=== PATIENT | female | born 1990 | race Caucasian/White ===

== ENCOUNTER 2018-10-24 11:27 | Inpatient (IN) | payer OTHER ==
[~2018-10-24] VITALS: Ht 162.6 cm; Wt 114.6 kg
--- NOTE | ~2018-10-24 | OP ---
PATIENT NAME: TONYA VICTOR MEDICAL RECORD: [id number] :88 LOCATION:D.M2 D.2137 ADMISSION DATE:10/24/18 SURGEON: CHRISTO JUAREZ MD DATE OF OPERATION: 10/28/2018 PREOPERATIVE DIAGNOSES: 1. Acute cholecystitis. 2. Gallstones. 3. Acute hepatitis. 4. Frequent headaches. POSTOPERATIVE DIAGNOSES: 1. Acute cholecystitis. 2. Gallstones. 3. Acute hepatitis. 4. Frequent headaches. PROCEDURE: 1. Laparoscopic cholecystectomy with intraoperative cholangiogram. 2. Fluoroscopic interpretation. 3. Carlos-Cut liver biopsy. SURGEON: Christo Juarez MD REPORT OF PROCEDURE: The patient's abdomen was prepped and draped in sterile fashion. A cutdown was made on the superior aspect of the umbilicus, 0 Vicryls were placed in the fascia bilaterally and the fascia was incised with 15-blade. I then bluntly entered the peritoneal cavity and placed a 12-mm Tracy port. Under direct visualization, a 5 mm trocar was placed in the epigastrium and 2 more 5-mm trocars were placed in the right subcostal region. The gallbladder was grasped and elevated. There were some chronic adhesions of the fatty tissue to the gallbladder and the liver. These were taken down using electrocautery. We then dissected free the cystic artery and cystic duct. The cystic artery was clipped proximally and distally and ligated in standard fashion. The cystic duct was clipped twice proximally and an opening was made. At this point, a Cook cholangiocath was brought through the abdominal wall and pushed into the cystic duct. An intraoperative cholangiogram was performed, which showed a nondilated biliary system with good flow into the hepatic vessels and out through the ampulla into the duodenum. There were no filling defects or signs of common bile duct stones. At this point, the cholangiocath was removed and the cystic duct was clipped twice distally and ligated. The gallbladder was then taken off the liver bed using electrocautery and placed in the right upper quadrant. Any bleeding from the liver bed was then treated with electrocautery. A Carlos-Cut biopsy tool was brought through the abdominal wall and 4 separate pieces of tissue were removed from the body of the right side of the liver. Any bleeding from these spots were treated with electrocautery. At the conclusion of the case, there was no sign of any active bleeding. The ports and insufflation were then removed and the gallbladder was taken out through the umbilicus. The umbilical fascia was closed with interrupted 0 Vicryls times 3. The wounds were then irrigated out with normal saline, infused with 10 mL of 0.25% Marcaine with epinephrine. The skin incisions were all closed with subcutaneous 5-0 Monocryl and dressed appropriately. COMPLICATIONS: None. OPERATIVE REPORT [id number] STONE,TONYA CONDITION: Stable. ANESTHESIA: General endotracheal and local. BLOOD LOSS: Minimal. TRANSINT:[id number] Voice Confirmation ID: [id number] DOCUMENT ID: [id number] CHRISTO JUAREZ MD CC: [id number] DICTATION DATE: 10/28/18 1001 CLAM BED LABORER: 10/28/18 1029 ADM IN [facility] [address] [id number]
[2018-10-24] MEDS ORDERED: WELLBUTRIN XL150 M1 PO (11:41)
--- NOTE | 2018-10-24 12:00 | NUR ---
ASSUMED CARE OF PT. RESTING IN BED. A/OX3. SIN W/D AND SLIGHTLY JAUNDICED. RESP EVEN/UNLABORED. DENIES ANY PAIN. CONT TO C/O NAUSEA.
[2018-10-24 12:27] LABS: BASOPHILS 0.3 % (0-2); EOSINOPHILS 0.3 % (0-7); HEMATOCRIT 42.3 % (36.0-48.0); HEMOGLOBIN 14.6 g/dL (12-16); IMMATURE GRANULOCYTES 1.3 % (0-5); MCH 29.9 pg (26.0-34.0); MCHC 34.5 g/dL (31.0-37.0); MCV 86.7 fL (80.0-100.0); MEAN PLATELET VOLUME 10.7 fL (7.4-10.4); MONOCYTES 7.6 % (2-11); NEUTROPHILS 81.5 % (40-80); PLATELET COUNT 234 10x3/uL (130-400); RBC 4.88 10x6/uL (4.00-5.40); RDW 14.4 % (11.5-14.5); WBC 7.5 10x3/uL (4.8-10.8)
[2018-10-24 12:31] VITALS: BP 113/69
[2018-10-24 12:40] LABS: ALBUMIN 3.3 g/dL (3.4-5.0); ANION GAP 13.8 mmol/L (8-16); CALCIUM 8.8 mg/dL (8.5-10.1); CARBON DIOXIDE 27.7 mmol/L (21.0-32.0); CREATININE - SERUM 1.1 mg/dL (0.6-1.3); POTASSIUM - SERUM 3.5 mmol/L (3.5-5.1); PROTEIN - SERUM 8.1 g/dL (6.4-8.2)
--- NOTE | 2018-10-24 13:15 | NUR ---
US TECH AT BS FOR ABD US
[2018-10-24 14:13] VITALS: BP 140/82
--- NOTE | 2018-10-24 14:14 | NUR ---
SITTING UPRIGHT IN BED. NAUSEA RESOLVED. ONLY C/O IS CRAWFORD 10/15, DENIES NEED FOR PAIN MEDS
--- NOTE | 2018-10-24 14:17 | NUR ---
URINE SPECIMEN OBTAINED, LABELED AT BS AND SENT TO LAB
[2018-10-24 14:25] LABS: APPEARANCE CLEAR (CLEAR); BILIRUBIN 3+ (NEGATIVE); COLOR DARK YELLOW (YELLOW); GLUCOSE NEGATIVE (NEGATIVE); KETONE LARGE mg/dL (NEGATIVE); NITRITE NEGATIVE (NEGATIVE); PROTEIN 2+ mg/dL (NEGATIVE); SPECIFIC GRAVITY 1.005 (1.005-1.020)
[2018-10-24 14:27] LABS: AMORPHOUS SEDIMENT <1+ /lpf (NONE SEEN); BACTERIA MANY /hpf (NONE SEEN); EPITHELIAL CELLS 0-5 /hpf (0-5); WHITE CELLS - URINE 0-5 /hpf (0-5)
[2018-10-24 16:11] VITALS: BP 136/80
--- NOTE | 2018-10-24 16:23 | NUR ---
REPORT CALLED TO IRENE WELCH BY SBAR FORMAT
--- NOTE | 2018-10-24 17:42 | NUR ---
NUCLEAR MEDICINE GONE. WILL DO PIPIDA SCAN TOMORROW. PT IS TO BE NPO AFTER MIDNIGHT.
[2018-10-24 17:52] VITALS: BP 136/80; BMI 39.5
--- NOTE | 2018-10-24 18:54 | NUR ---
PT WANTING SOMETHING FOR ANXIETY. SPOKE WITH DR. PAT AND HE ORDERED ATIVAN 1MG Q8HP FOR ANXIETY.
[2018-10-24 20:37] VITALS: BP 117/62
--- NOTE | 2018-10-25 03:18 | NUR ---
THE PATIENT APPEARS TO BE SLEEPING COMFORTABLY. MOTHER REMAINS IN THE PATIENTS ROOM.
[2018-10-25 06:11] LABS: HEPATITIS C ANTIBODY <0.1 (0.0-0.9)
[2018-10-25 08:00] VITALS: BP 118/64
--- NOTE | 2018-10-25 08:17 | NUR ---
PT SITTING UP IN BED RESTING. DENIES PAIN THIS TIME. STATES "I FEEL BETTER TODAY, I FEEL MORE HYDRATED." A/O X 4. UP AB BUSHRA. R AC IV WITH NS @ 125. PATENT, NO REDENSS, NO EDEMA, DRSG C/D/I. FAMILY AT BEDSIDE. PT NPO FOR SCAN THIS AM. PT HAS HAD NOTHING TO EAT OR DRINK SINCE MIDNIGHT AND NO PAIN MEDICINE. ROOM AIR. GENERALIZED EDEMA NOTED. LUNGS CLEAR. HEART RRR. NO FURTHER CONERNS AT THIS TIME. FALL/SAFETY PRECAUTIONS TAKEN. BED LOWERED AND LOCKED. CL IN REACH. WILL CTM.
[2018-10-25 08:36] LABS: BASOPHILS 0.2 % (0-2); EOSINOPHILS 0.6 % (0-7); HEMATOCRIT 34.8 % (36.0-48.0); IMMATURE GRANULOCYTES 1.8 % (0-5); LYMPHOCYTES 9.8 % (15-50); MCH 29.7 pg (26.0-34.0); MCHC 34.5 g/dL (31.0-37.0); MCV 86.1 fL (80.0-100.0); MEAN PLATELET VOLUME 10.1 fL (7.4-10.4); MONOCYTES 11.9 % (2-11); NEUTROPHILS 75.7 % (40-80); PLATELET COUNT 192 10x3/uL (130-400); RBC 4.04 10x6/uL (4.00-5.40); RDW 14.6 % (11.5-14.5); WBC 6.2 10x3/uL (4.8-10.8)
[2018-10-25 08:56] LABS: ALKALINE PHOSPHATASE 195 U/L (46-116); ALT (SGPT) 88 U/L (10-68); BILIRUBIN - TOTAL 4.98 mg/dL (0.2-1.3); CALC OSMOLALITY 276 mosm/kg (275-300); CALCIUM 8.2 mg/dL (8.5-10.1); CARBON DIOXIDE 26.3 mmol/L (21.0-32.0); CHLORIDE - SERUM 105 mmol/L (98-107); CREATININE - SERUM 0.9 mg/dL (0.6-1.3); GLUCOSE 103 mg/dL (74-106); MAGNESIUM - SERUM 1.9 mg/dL (1.8-2.4); PHOSPHOROUS 1.8 mg/dL (2.5-4.9); POTASSIUM - SERUM 3.2 mmol/L (3.5-5.1); PROTEIN - SERUM 6.3 g/dL (6.4-8.2); SODIUM 140 mmol/L (136-145); UREA NITROGEN 8 mg/dL (7-18); eGFR NON AFRICAN AMERICAN 78 mL/min (90-120)
[2018-10-25 09:04] LABS: ALBUMIN 2.4 g/dL (3.4-5.0)
--- NOTE | 2018-10-25 09:42 | NUR ---
PT C/O SITE AROUND IV BEING TIGHT AND SWOLLEN. UPON EXAMINAITON OF IV, IV SEEMS TO BE INFILTRATED. WILL REMOVE IV AND CALL VASCULAR ACCESS TO RESITE IV.
--- NOTE | 2018-10-25 09:55 | NUR ---
PT TO NUCLEAR MED FOR PIPIDA SCAN
--- NOTE | 2018-10-25 10:14 | NUR ---
NURSE FROM ER TO MEET PT AT NUCLEAR MED TO SITE IV.
--- NOTE | 2018-10-25 10:24 | NUR ---
OFF FLOOR IN NUCLEAR MEDICINE.
[2018-10-25 10:50] VITALS: BMI 39.5
--- NOTE | 2018-10-25 11:29 | NUR ---
PT BACK TO ROOM FROM [facility] VIA WHEELCHAIR.
--- NOTE | 2018-10-25 12:01 | NUR ---
PT FAMILY INFOMRED ME THAT PT WAS STILL IN NUCLEAR MED, PT WAS JUST NOW BEGINING PROCEDURE DUE TO IV WAS JUST SITED.
[2018-10-25 12:09] LABS: EBV - EARLY ANTIGEN AB IGG <9.0 U/mL (0.0-8.9); EBV - NUCLEAR ANTIGEN AB IGG <18.0 U/mL (0.0-17.9); EBV VIRAL CAPSID AB IGM <36.0 U/mL (0.0-35.9)
--- NOTE | 2018-10-25 14:02 | NUR ---
2 MG OF MORPHINE GIVEN TO PT IV IN R FOOT. IV PATENT AT THIS TIME. PT CURRENTLY GETTING PIPIDA SCAN DONE IN NUCLEAR MED. MEDICAL VAN DRIVER STAYING WITH PT TO WATCH FOR S/S OF RESP DEPRESSION. NO FURTHER CONCERNS AT THIS TIME.
--- NOTE | 2018-10-25 14:22 | NUR ---
pt back from [facility] med via wheelchair. drinking sprite without difficulty.
--- NOTE | 2018-10-25 14:34 | NUR ---
PT C/O SHIVERING A BEING COLD. CHECKED TEMP. TEMP 98.6.
--- NOTE | 2018-10-25 15:45 | NUR ---
ULTRAM GIVEN FOR HEADACHE OF A 5/10 ON A 10 POINT NUMERIC PAIN SCALE. ELECTROLYTE PROTOCOL STARTED FOR K+ OF 3.2 AND PHOSPHORUS OF 1.8. PT DENIES FURTHER NEEDS AT THIS TIME. ENCOURAGE PT TO DRINK LOTS OF FLUIDS. TWO LARGE GLASSES OF ICE WATER SUPPLIED TO PT. WILL CTM.
--- NOTE | 2018-10-25 18:24 | NUR ---
DR. JUAREZ NOTIFIED OF CONSULT. VERBALIZED UNDERSTANDING. NO FURTHER CONCERNS AT THIS TIME. NO FURTHER ORDERS.
--- NOTE | 2018-10-25 19:14 | NUR ---
RECIEVED LYING IN BED WITH EYES OPEN AND TV ON. SPOUSE AND MOTHER AT BEDSIDE. ALERT AND ORIENTED X4. UP AD BUSHRA TO B/R. IV TO RIGHT FOOT AND ABBLE TO SEE PART OF CANNULLA. ORDER FOR IV ACCESS NURSE. AWAITING IV ACCESS NURSE AND WILL CALLER TO NOTIFY HER OF ORDER. THIS NURSE DOES NOT FEEL COMFORTABLE USING THE IV TO FOOT. DOES STATE PAIN MEDICATION DOES'NT SEEM TO LASTING LONG ENOUGH. WILL NOTIFY CATERING MANAGER FOR ORDERS. DENIES ANY OTHER NEEDS.
[2018-10-25 21:10] VITALS: BP 113/67
--- NOTE | 2018-10-25 21:21 | NUR ---
DR PAT CALLED REQUESTING RESULTS OF NUCLEAR SCAN TODAY. RESULTS GIVEN AND ALSO VOICED CONCERNS OF DR. JUAREZ BEING NOTIFIED. NN STATES LARRY HAS BEEN NOTIFIED. TEM WAS 101.5 AND STATED PAIN MED NOT HOLDING TO GOOD. NEW ORDERS FOR TYLENOL 650 MG Q4 HR PRN FOR TEMP AND NORCO 10/325MG ONE TO YWO Q4 HRS PRN.
[2018-10-25 23:58] VITALS: BP 126/83
[2018-10-26 05:51] VITALS: BP 106/84
[2018-10-26 06:16] LABS: BASOPHILS 0.2 % (0-2); EOSINOPHILS 1.2 % (0-7); HEMOGLOBIN 10.6 g/dL (12-16); LYMPHOCYTES 17.6 % (15-50); MCH 29.4 pg (26.0-34.0); MCHC 34.2 g/dL (31.0-37.0); MCV 85.9 fL (80.0-100.0); MEAN PLATELET VOLUME 10.2 fL (7.4-10.4); MONOCYTES 14.3 % (2-11); NEUTROPHILS 64.7 % (40-80); PLATELET COUNT 181 10x3/uL (130-400); RBC 3.61 10x6/uL (4.00-5.40); WBC 5.1 10x3/uL (4.8-10.8)
--- NOTE | 2018-10-26 07:58 | NUR ---
MORNING ROUNDS MADE. PT LAYING IN BED RESTING. C/O HEADACHE. A/O X 4. UP AB BUSHRA. MOM AT BEDSIDE. L ARM MIDLINE WITH NS @ 125 CC/HR. RM AIR. GENERALIZED EDEMA NOTED. HEART RRR. LUNGS CLEAR. DENIES FURTHER NEEDS AT THIS TIME. WILL LOOK INTO GETTING SOMETHING FOR PT HEADACHE. NO FURTHER CONCERNS AT THIS TIME. CL IN REACH. FALL PRECAUTIONS IN PLACE. WILL CTM.
[2018-10-26 08:14] VITALS: BP 116/75
[2018-10-26 08:55] LABS: ALBUMIN 2.1 g/dL (3.4-5.0); ALKALINE PHOSPHATASE 191 U/L (46-116); BILIRUBIN - TOTAL 5.17 mg/dL (0.2-1.3); CALC OSMOLALITY 273 mosm/kg (275-300); CARBON DIOXIDE 23.6 mmol/L (21.0-32.0); CHLORIDE - SERUM 103 mmol/L (98-107); CREATININE - SERUM 0.9 mg/dL (0.6-1.3); GLUCOSE 102 mg/dL (74-106); PROTEIN - SERUM 5.7 g/dL (6.4-8.2); SODIUM 138 mmol/L (136-145); UREA NITROGEN 6 mg/dL (7-18); eGFR NON AFRICAN AMERICAN 78 mL/min (90-120)
[2018-10-26 08:56] LABS: ALT (SGPT) 117 U/L (10-68); POTASSIUM - SERUM 3.4 mmol/L (3.5-5.1)
--- NOTE | 2018-10-26 10:04 | NUR ---
PT C/O PAIN IN HEAD. NORCO GIVEN PO. TOOK MEDS WITHOUT DIFFICULTY. FAMILY AT BEDSIDE. VITALS STABLE. MIDLINE TO L UPPER ARM. PATENT, NO REDNESS OR EDEMA NOTED. NO FURTHER CONCERNS AT THIS TIME. BED LOWERED AND LOCKED. CL IN REACH .WILL CTM.
--- NOTE | 2018-10-26 10:05 | NUR ---
PT TO MRI VIA WHEEL CHAIR. L ARM MIDLINE SL.
--- NOTE | 2018-10-26 10:36 | NUR ---
PT BACK TO ROOM FROM MRI VIA WHEELCHAIR
--- NOTE | 2018-10-26 11:49 | NUR ---
PT LAYING IN BED RESTING, FAMILY AT BEDSIDE. FLONASE GIVEN. NO FURTHER CONCERNS AT THIS TIME. PT RECONNECTED TO NS @ 125 IN L MIDLINE, PATENT, NO REDNESS, NO EDEMA. DRESSING C/D/I. WILL CTM.
[2018-10-26 12:08] VITALS: BP 124/81
--- NOTE | 2018-10-26 13:44 | NUR ---
I have reviewed this patient and I concur with the Shift Assessment completed by the Licensed Practical Nurse today this shift.
[2018-10-26 14:09] LABS: APTT 32.3 SECONDS (22.8-39.4); INR 1.21 (0.85-1.17); PROTIME 14.8 SECONDS (11.6-15.0)
--- NOTE | 2018-10-26 14:22 | NUR ---
PT REFUSES TO WEAR SCDS. PT UP AB BUSHRA.
[2018-10-26 15:49] VITALS: BP 122/76
--- NOTE | 2018-10-26 20:00 | NUR ---
RECIEVED UP IN BED WITH EYES OPEN AND TV ON. SPOUSE AT BEDSIDE. ALERT AND ORIENTED X4. UP AD BUSHRA TO B/R. DENIES ANY PAIN AND STATES PAIN MEDICATION EFFECTIVE. IV TO LEFT FA WIT6H NS AT 125CC/HR. DSG CLEAN DRY AND INTACT. NO REDNESS OR SWELLING TO SITE. DENIES ANY NEEDS AT THIS TIME.
[2018-10-26 20:33] VITALS: BP 121/71
[2018-10-27 00:33] VITALS: BP 122/75
[2018-10-27 05:08] VITALS: BP 124/78
[2018-10-27 06:41] LABS: ALBUMIN 2.2 g/dL (3.4-5.0); ALKALINE PHOSPHATASE 213 U/L (46-116); ALT (SGPT) 132 U/L (10-68); BILIRUBIN - TOTAL 6.22 mg/dL (0.2-1.3); CALC OSMOLALITY 270 mosm/kg (275-300); CALCIUM 7.9 mg/dL (8.5-10.1); CARBON DIOXIDE 24.5 mmol/L (21.0-32.0); CHLORIDE - SERUM 102 mmol/L (98-107); CREATININE - SERUM 0.8 mg/dL (0.6-1.3); GLUCOSE 93 mg/dL (74-106); POTASSIUM - SERUM 3.9 mmol/L (3.5-5.1); PROTEIN - SERUM 5.5 g/dL (6.4-8.2); SODIUM 137 mmol/L (136-145); UREA NITROGEN 5 mg/dL (7-18); eGFR NON AFRICAN AMERICAN 90 mL/min (90-120)
[2018-10-27 07:31] LABS: BASOPHILS 0.2 % (0-2); EOSINOPHILS 2.3 % (0-7); HEMATOCRIT 32.3 % (36.0-48.0); HEMOGLOBIN 10.9 g/dL (12-16); IMMATURE GRANULOCYTES 1.6 % (0-5); MCH 29.1 pg (26.0-34.0); MCHC 33.7 g/dL (31.0-37.0); MCV 86.1 fL (80.0-100.0); MEAN PLATELET VOLUME 10.7 fL (7.4-10.4); MONOCYTES 13.8 % (2-11); NEUTROPHILS 68.1 % (40-80); PLATELET COUNT 217 10x3/uL (130-400); RBC 3.75 10x6/uL (4.00-5.40); RDW 15.3 % (11.5-14.5); WBC 5.7 10x3/uL (4.8-10.8)
--- NOTE | 2018-10-27 07:55 | NUR ---
A/A/OX4. REQUESTING MED FOR HEADACHE RATED AT 9/10. MEDICATED WITH FIORICET 2 TABLETS ORDERED. NO OTHER REQUESTS VOICED. ASSESSMENT COMPLETED. WILL CONTINUE POC.
[2018-10-27 08:00] VITALS: BP 122/77
[2018-10-27 09:24] VITALS: Ht 162.6 cm; Wt 114.6 kg
[2018-10-27 12:00] VITALS: BP 122/74
--- NOTE | 2018-10-27 13:48 | NUR ---
C/O NAUSEA WITHOUT EMESIS. REQUESTING MED FOR NAUSES BUT STATES THE ZOFRAN NEVER WORKS FOR HER. ORDER RECEIVED FROM BALAJI ROSALES FOR PHENERGAN 25 MG IM Q 8 HOURS PRN AND GIVEN.
--- NOTE | 2018-10-27 15:00 | NUR ---
I have reviewed this patient and I concur with the Shift Assessment completed by the Licensed Practical Nurse today this shift.
[2018-10-27 16:20] VITALS: BP 121/73
[2018-10-27 20:00] VITALS: BP 118/74
--- NOTE | 2018-10-27 20:16 | NUR ---
REST QUIELTY IN BED, FAMILY MEMBER AT BEDSIDE. CALL LIGHT IN REACH.
--- NOTE | 2018-10-27 21:50 | NUR ---
CONSENT SIGNED FOR TOMORROW PROCEDURE.
[2018-10-28] VITALS: BP 135/78
--- NOTE | 2018-10-28 03:50 | NUR ---
I have reviewed this patient and I concur with the Shift Assessment completed by the Licensed Practical Nurse today this shift.
[2018-10-28 04:00] VITALS: BP 123/85
[2018-10-28 06:35] LABS: HEMATOCRIT 30.3 % (36.0-48.0); HEMOGLOBIN 10.4 g/dL (12-16); MCHC 34.3 g/dL (31.0-37.0); MCV 87.3 fL (80.0-100.0); MEAN PLATELET VOLUME 9.6 fL (7.4-10.4); NEUTROPHILS 75.7 % (40-80); PLATELET COUNT 218 10x3/uL (130-400); RBC 3.47 10x6/uL (4.00-5.40); RDW 16.1 % (11.5-14.5); WBC 5.8 10x3/uL (4.8-10.8)
--- NOTE | 2018-10-28 07:30 | NUR ---
PT SITTING ON SIDE OF BED THROWING UP, PT REQUEST PHENERGAN IM.
[2018-10-28 07:44] LABS: ALBUMIN 1.9 g/dL (3.4-5.0); ALKALINE PHOSPHATASE 200 U/L (46-116); ALT (SGPT) 105 U/L (10-68); BILIRUBIN - TOTAL 5.68 mg/dL (0.2-1.3); CALC OSMOLALITY 274 mosm/kg (275-300); CALCIUM 8.1 mg/dL (8.5-10.1); CHLORIDE - SERUM 106 mmol/L (98-107); CREATININE - SERUM 0.8 mg/dL (0.6-1.3); GLUCOSE 86 mg/dL (74-106); PROTEIN - SERUM 5.7 g/dL (6.4-8.2); SODIUM 140 mmol/L (136-145); UREA NITROGEN 5 mg/dL (7-18); eGFR NON AFRICAN AMERICAN 90 mL/min (90-120)
[2018-10-28 07:56] LABS: POTASSIUM - SERUM 3.8 mmol/L (3.5-5.1)
--- NOTE | 2018-10-28 08:10 | NUR ---
PT REPORTS RELIEF OF NAUSEA. SURGERY NOTIFIED NURSE TO PREOP PT. PT PREOP ORDERED
--- NOTE | 2018-10-28 08:47 | NUR ---
PT LEFT FLOOR FOR SURGERY
[2018-10-28 08:57] VITALS: BP 132/73
--- NOTE | 2018-10-28 10:30 | NUR ---
PT RETURNED TO FLOOR FROM SURGERY, VSS AND WNL
--- NOTE | 2018-10-28 10:45 | NUR ---
PT RESTING IN BED, DRESSINGS TO ABD C/D/I. C/O OF MILD ABD DISCOMFORT. FAMILY AT BEDSIDE. VSS AND WNL. WILL CONT TO FOLLOW POC
--- NOTE | 2018-10-28 11:00 | NUR ---
PT RESTING IN BED, FAMILY AT BEDSIDE. VSS AND WNL. WILL CONT TO FOLLOW PLAN OF CARE
--- NOTE | 2018-10-28 12:00 | NUR ---
PT REQUEST PAIN MEDICATION. ADVISED PT SHE CAN HAVE PRN DEMEROL AT 1400. PT VERBALIZES UNDERSTANING. DENIES ANY OTHER NEEDS AT THIS TIME, VSS AND WNL. WILL CONT TO FOLLOW POC
--- NOTE | 2018-10-28 14:00 | NUR ---
PRN DEMEROL GIVEN ORDERED R/T ABD PAIN. FAMILY AT BEDSIDE. VSS AND WNL. DRESSINGS TO ABD C/D/I. WILL CONT TO FOLLOW POC
--- NOTE | 2018-10-28 14:30 | NUR ---
Nutrition Follow Up: Reviewed chart NPO and clear liquid past 3 days Diet advanced after surgery today to regular RD following
[2018-10-28 16:11] VITALS: BP 112/69
[2018-10-28 20:00] VITALS: BP 130/70
--- NOTE | 2018-10-28 21:39 | NUR ---
PT C/O PAIN IN ABD, AT A LEVEL OF 8, NORCO 10 GIVEN ORDERED.
[2018-10-29 00:30] VITALS: BP 119/79
--- NOTE | 2018-10-29 01:01 | NUR ---
PT TEMP IS 100.3 TYLENOL 650MG ADMINISTERED ORDERED.
--- NOTE | 2018-10-29 01:45 | NUR ---
RECHECKED PT'S TEMP 98.6
--- NOTE | 2018-10-29 03:18 | NUR ---
REST QUIELTY IN BED, CALL LIGHT IN REACH.
--- NOTE | 2018-10-29 04:12 | NUR ---
I have reviewed this patient and I concur with the Shift Assessment completed by the Licensed Practical Nurse today this shift.
[2018-10-29 05:00] VITALS: BP 128/79
[2018-10-29 05:04] LABS: BASOPHILS 0 % (0-2); EOSINOPHILS 0.8 % (0-7); HEMATOCRIT 28.8 % (36.0-48.0); HEMOGLOBIN 9.8 g/dL (12-16); IMMATURE GRANULOCYTES 1.3 % (0-5); LYMPHOCYTES 11.8 % (15-50); MCH 29.3 pg (26.0-34.0); MEAN PLATELET VOLUME 9.9 fL (7.4-10.4); MONOCYTES 7.8 % (2-11); NEUTROPHILS 78.3 % (40-80); PLATELET COUNT 216 10x3/uL (130-400); RBC 3.35 10x6/uL (4.00-5.40); RDW 15.6 % (11.5-14.5); WBC 7.7 10x3/uL (4.8-10.8)
[2018-10-29 05:21] LABS: ALBUMIN 1.8 g/dL (3.4-5.0); ALKALINE PHOSPHATASE 197 U/L (46-116); ALT (SGPT) 98 U/L (10-68); BILIRUBIN - TOTAL 3.64 mg/dL (0.2-1.3); CALC OSMOLALITY 262 mosm/kg (275-300); CALCIUM 7.7 mg/dL (8.5-10.1); CARBON DIOXIDE 22.6 mmol/L (21.0-32.0); CHLORIDE - SERUM 101 mmol/L (98-107); CREATININE - SERUM 0.9 mg/dL (0.6-1.3); GLUCOSE 100 mg/dL (74-106); POTASSIUM - SERUM 3.7 mmol/L (3.5-5.1); PROTEIN - SERUM 5.7 g/dL (6.4-8.2); SODIUM 133 mmol/L (136-145); UREA NITROGEN 5 mg/dL (7-18); eGFR NON AFRICAN AMERICAN 78 mL/min (90-120)
--- NOTE | 2018-10-29 08:00 | NUR ---
PT RESTING IN BED, C/O CRAWFORD. WILL PROVIDE PT WITH PRN FIORICET. SHIFT ASSESSMENT PREFORMED. DENIES ANY OTHER NEEDS AT THIS TIME, WILL CONT TO FOLLOW PLAN OF CARE
[2018-10-29 08:39] VITALS: BP 127/80
[2018-10-29 15:50] VITALS: BP 124/78
--- NOTE | 2018-10-29 19:32 | NUR ---
PT COMPLAINS OF HEADACHE WITH FEVER OF 100.8. PRN TYLENOL GIVEN. PT IS ALERT AND ORIENTED. NO S/S OF DISTRESS. BED LOW CALL LIGHT WITHIN REACH. WILL CONTINUE TO MONITOR.
[2018-10-29 20:00] VITALS: BP 106/56
--- NOTE | 2018-10-29 21:30 | NUR ---
PT WALKED AROUND UNIT 4 TIMES WITH WITHOUT DIFFICULTY. WILL CONTINUE TO MONITOR.
[2018-10-30 00:30] VITALS: BP 109/70
--- NOTE | 2018-10-30 00:36 | NUR ---
PT COMPLAINS OF 8/10 PAIN IN ABDOMEN AT INCISION SITE. PRN PAIN MEDICATION GIVEN. EDUCATED PT ABOUT TAKING TO MUCH ACETAMINOPHEN AND CONCERNS ABOUT EFFECT ON LIVER. BED LOW CALL LIGHT WITHIN REACH. FAMILY AT BEDSIDE. WILL CONTINUE TO MONITOR.
--- NOTE | 2018-10-30 01:58 | NUR ---
PT RESTING IN BED WITH EYES CLOSED RR EVEN AND UNLABORED. IS AT BEDSIDE. BED LOW, SCD'S ON, CALL LIGHT WITHIN REACH. WILL CONTINUE TO MONITOR.
[2018-10-30 04:30] VITALS: BP 125/80
--- NOTE | 2018-10-30 05:13 | NUR ---
I have reviewed this patient and I concur with the Shift Assessment completed by the Licensed Practical Nurse today this shift.
[2018-10-30 07:43] LABS: BASOPHILS 0.1 % (0-2); EOSINOPHILS 1.1 % (0-7); HEMATOCRIT 28.6 % (36.0-48.0); HEMOGLOBIN 9.6 g/dL (12-16); IMMATURE GRANULOCYTES 1.2 % (0-5); LYMPHOCYTES 8.5 % (15-50); MCH 29.1 pg (26.0-34.0); MCHC 33.6 g/dL (31.0-37.0); MCV 86.7 fL (80.0-100.0); MEAN PLATELET VOLUME 9.9 fL (7.4-10.4); MONOCYTES 6.4 % (2-11); NEUTROPHILS 82.7 % (40-80); PLATELET COUNT 245 10x3/uL (130-400); RDW 15.8 % (11.5-14.5)
[2018-10-30 07:55] LABS: WBC 9.9 10x3/uL (4.8-10.8)
[2018-10-30 08:02] LABS: ALBUMIN 1.9 g/dL (3.4-5.0); ALKALINE PHOSPHATASE 224 U/L (46-116); ALT (SGPT) 79 U/L (10-68); BILIRUBIN - TOTAL 2.73 mg/dL (0.2-1.3); CALC OSMOLALITY 265 mosm/kg (275-300); CALCIUM 8.1 mg/dL (8.5-10.1); CARBON DIOXIDE 24.3 mmol/L (21.0-32.0); CHLORIDE - SERUM 101 mmol/L (98-107); CREATININE - SERUM 0.8 mg/dL (0.6-1.3); GLUCOSE 106 mg/dL (74-106); POTASSIUM - SERUM 3.4 mmol/L (3.5-5.1); SODIUM 134 mmol/L (136-145); UREA NITROGEN 7 mg/dL (7-18); eGFR NON AFRICAN AMERICAN 90 mL/min (90-120)
[2018-10-30 08:33] VITALS: BP 120/74
--- NOTE | 2018-10-30 12:32 | MORECARE ---
CASE MANAGEMENT DISCHARGE SUMMARY PATIENT: TONYA VICTOR UNIT: [id number] ADM DATE: 10/24/18 AGE: 28 : [birth year] SEX: F ROOM/BED: D.2137 AUTHOR: ROSAS VAIL PHYSICIAN: REFERRING PHYSICIAN: JAKE PAT MD DATE OF SERVICE: 10/30/18 Discharge Plan Patient Name: TONYA VICTOR Facility: [facility]:[place] : 1990 Planned Disposition: Home Anticipated Discharge Date: Discharge Date: Expected LOS: Initial Reviewer: [email or web address] Initial Review Date: 10/24/2018 Generated: 10/30/18 1:31 pm Patient Name: TONYA VICTOR Page [id number] at 1232 All edits/amendments must be made on the electronic document DICTATION DATE: 10/30/18 1231 ASSISTANT HEALTH EDUCATOR: [email or web address] 10/30/18 1231 RPT#: [id number] DC DATE: STATUS: ADM IN [facility] [address] [place] [address] END OF REPORT
--- NOTE | 2018-10-30 12:40 | MORECARE ---
CASE MANAGEMENT DISCHARGE SUMMARY PATIENT: TONYA VICTOR UNIT: [id number] ADM DATE: 10/24/18 AGE: 28 : [birth year] SEX: F ROOM/BED: D.2852 AUTHOR: GENNA,DOC PHYSICIAN: REFERRING PHYSICIAN: JAKE PAT MD DATE OF SERVICE: 10/30/18 Discharge Plan Patient Name: TONYA VICTOR Facility: [facility]:[place] : 1990 Planned Disposition: Home Anticipated Discharge Date: Discharge Date: Expected LOS: Initial Reviewer: [email or web address] Initial Review Date: 10/24/2018 Generated: 10/30/18 1:40 pm Comments DCP- Discharge Planning Updated by [email or web address]: Wilfredo Howard on 10/30/18 11:[address] Patient Name: TONYA VICTOR Admission Status: ER Accout number: [id number] Admission Date: 10-24-2018 : 1990 Admission Diagnosis:NAUSEA WITH VOMITING, UNSPECIFIED Attending: JAKE PAT Current LOS: 6 Anticipated DC Date: Planned Disposition: Home Primary Insurance: [employer] Discharge Planning Comments: CM MET WITH PT AND MOTHER IN ROOM TO DISCUSS DISCHARGE PLANNING AND NEEDS. TONYA VICTOR provided verbal consent to discuss current and ongoing needs with/in the presence of: MOTHER, BALAJI. PT REPORTS LIVING AT HOME INDEPENDENTLY WITH HER SPOUSE. PT HAS NO MEDICAL EQUIPMENT AND NO OUTSIDE SERVICES ASSISTING IN THE HOME. CM DISCUSSED AVAILABILITY OF HOME HEALTH, REHAB SERVICES AND MEDICAL EQUIPMENT. PT DENIES DISCHARGE NEEDS, REPORTS HER SPOUSE OR MOTHER WILL PICK HER UP FOR DISCHARGE HOME. PT PLANS TO DISCHARGE HOME, DENIES NEEDS AT THIS TIME. FAMILY TO TRANSPORT HOME. CM TO FOLLOW AND ASSIST IF NEEDED. [employer] Supervisor: Wilfredo Howard DCPIA - Discharge Planning Initial Assessment Updated by [email or web address]: Wilfredo Howard on 10/30/18 12:32 pm * Is the patient Alert and Oriented? Yes * How many steps to enter\exit or inside your home? * PCP DR. PAT * Pharmacy [facility] ON [address] * Preadmission Environment Home with Family * ADLs Independent * Equipment None * Other Equipment NO MEDICAL EQUIPMENT PROVIDER PREFERECE * List name and contact numbers for known caregivers / representatives who currently or will assist patient after discharge: TATI VICTOR, SPOUSE, BALAJI ZIMMER, MOTHER, * Verbal permission to speak to the caregivers and representatives has been obtained from the patient. Yes * Community resources currently utilized None * Please name any agencies selected above. NONE * Additional services required to return to the preadmission environment? No * Can the patient safely return to the preadmission environment? Yes Last DP export: 10/30/18 11:31 a Patient Name: TONYA VICTOR Page [phone] at 1240 All edits/amendments must be made on the electronic document DICTATION DATE: 10/30/18 1240 BAG MACHINE OPERATOR: PEBBLES 10/30/18 1240 RPT#: [id number] DC DATE: STATUS: ADM IN [facility] [address] [place] [address] END OF REPORT
[2018-10-30 15:52] VITALS: BP 113/74
[2018-10-30] MEDS ORDERED: LEVAQUIN750 MG PO (16:51)
--- NOTE | 2018-11-03 09:17 | MORECARE ---
CASE MANAGEMENT DISCHARGE SUMMARY PATIENT: TONYA VICTOR UNIT: [id number] ADM DATE: 10/24/18 AGE: 28 : [birth year] SEX: F ROOM/BED: D.1787 AUTHOR: GENNA,DOC PHYSICIAN: REFERRING PHYSICIAN: JAKE PAT MD DATE OF SERVICE: 11/03/18 Discharge Plan Patient Name: TONYA VICTOR Facility: [facility]:[place] : 1990 Planned Disposition: Home Anticipated Discharge Date: 10/30/18 Discharge Date: 10/30/2018 Expected LOS: 6 Initial Reviewer: [email or web address] Initial Review Date: 10/24/2018 Generated: 11/03/18 10:17 am Comments DCP- Discharge Planning Updated by [email or web address]: Wilfredo Howard on 10/30/18 11:[address] Patient Name: TONYA VICTOR Admission Status: ER Accout number: [id number] Admission Date: 10-24-2018 : 1990 Admission Diagnosis:NAUSEA WITH VOMITING, UNSPECIFIED Attending: JAKE PAT Current LOS: 6 Anticipated DC Date: Planned Disposition: Home Primary Insurance: [employer] Discharge Planning Comments: CM MET WITH PT AND MOTHER IN ROOM TO DISCUSS DISCHARGE PLANNING AND NEEDS. TONYA VICTOR provided verbal consent to discuss current and ongoing needs with/in the presence of: MOTHER, BALAJI. PT REPORTS LIVING AT HOME INDEPENDENTLY WITH HER SPOUSE. PT HAS NO MEDICAL EQUIPMENT AND NO OUTSIDE SERVICES ASSISTING IN THE HOME. CM DISCUSSED AVAILABILITY OF HOME HEALTH, REHAB SERVICES AND MEDICAL EQUIPMENT. PT DENIES DISCHARGE NEEDS, REPORTS HER SPOUSE OR MOTHER WILL PICK HER UP FOR DISCHARGE HOME. PT PLANS TO DISCHARGE HOME, DENIES NEEDS AT THIS TIME. FAMILY TO TRANSPORT HOME. CM TO FOLLOW AND ASSIST IF NEEDED. Commercial Art Instructor: Wilfredo Howard DCPIA - Discharge Planning Initial Assessment Updated by [email or web address]: Wilfredo Howard on 10/30/18 12:32 pm * Is the patient Alert and Oriented? Yes * How many steps to enter\exit or inside your home? * PCP DR. PAT * Pharmacy [facility] ON [address] * Preadmission Environment Home with Family * ADLs Independent * Equipment None * Other Equipment NO MEDICAL EQUIPMENT PROVIDER PREFERECE * List name and contact numbers for known caregivers / representatives who currently or will assist patient after discharge: TATI VICTOR, SPOUSE, BALAJI ZIMMER, MOTHER, * Verbal permission to speak to the caregivers and representatives has been obtained from the patient. Yes * Community resources currently utilized None * Please name any agencies selected above. NONE * Additional services required to return to the preadmission environment? No * Can the patient safely return to the preadmission environment? Yes Last DP export: 10/30/18 11:40 a Patient Name: TONYA VICTOR Page [id number] at 0917 All edits/amendments must be made on the electronic document DICTATION DATE: 11/03/18916 MEASUREMENT SUPERVISOR: PEBBLES 11/03/18916 RPT#: [id number] DC DATE:10/30/18 STATUS: DIS IN [facility] [address] [place] [address] END OF REPORT
== END 2018-10-30 19:00 | disposition home or self-care (01) | DRG 417 ==
LOC: D.ER 11:27 → D.M2 15:55 → D.M3 15:55 → D.EDHOLD 15:55 → D.M3 16:25 → D.M2 10-25 18:12
PROVIDERS: Family Medicine; Internal Medicine Gastroenterology; Surgery; ADMIT Family Medicine; ATTEND Family Medicine
PROC: 05HC33Z Insertion of Infusion Device into Left Basilic Vein, Percutaneous Approach (ICD-10-PCS; 2018-10-25)
PROC: B54NZZA Ultrasonography of Left Upper Extremity Veins, Guidance (ICD-10-PCS; 2018-10-25)
PROC: BF101ZZ Fluoroscopy of Bile Ducts using Low Osmolar Contrast (ICD-10-PCS; 2018-10-28)
PROC: 0FT44ZZ Resection of Gallbladder, Percutaneous Endoscopic Approach (ICD-10-PCS; principal; 2018-10-28 13:00)
PROC: 0FB04ZX Excision of Liver, Percutaneous Endoscopic Approach, Diagnostic (ICD-10-PCS; 2018-10-28 13:00)
DX: K80.00 Calculus of gallbladder with acute cholecystitis without obstruction (principal); J18.1 Lobar pneumonia, unspecified organism; B17.9 Acute viral hepatitis, unspecified; K76.0 Fatty (change of) liver, not elsewhere classified; E86.0 Dehydration; F32.9 Major depressive disorder, single episode, unspecified; R51 Headache; D50.9 Iron deficiency anemia, unspecified; E87.6 Hypokalemia; J01.90 Acute sinusitis, unspecified; R00.0 Tachycardia, unspecified

== ENCOUNTER → 2019-04-10 08:01 | Outpatient (CLI) | payer OTHER ==
[2018-10-27 09:24] VITALS: BMI 39.5
[~2019-04-10 08:01] MED LIST: LEVAQUIN750 MG PO; WELLBUTRIN XL150 M1 PO
[2019-04-10 09:23] LABS: ALBUMIN 3.9 g/dL (3.4-5.0); BILIRUBIN - DIRECT 0.16 mg/dL (0.00-0.30); BILIRUBIN - INDIRECT 0.53 mg/dL (0.00-1.00); BILIRUBIN - TOTAL 0.69 mg/dL (0.2-1.3)
== END | disposition home or self-care (01) ==
LOC: D.US 08:01
PROVIDERS: ATTEND Internal Medicine Gastroenterology
DX: K76.0 Fatty (change of) liver, not elsewhere classified (principal)

== ENCOUNTER → 2019-12-24 08:40 | Outpatient (CLI) | payer BC ==
[2018-10-27 09:24] VITALS: BMI 39.5
[2019-12-24 09:17] LABS: ALBUMIN 3.7 g/dL (3.4-5.0); BILIRUBIN - DIRECT 0.12 mg/dL (0.00-0.30); BILIRUBIN - INDIRECT 0.28 mg/dL (0.00-1.00); BILIRUBIN - TOTAL 0.4 mg/dL (0.2-1.3); PROTEIN - SERUM 7.1 g/dL (6.4-8.2)
== END | disposition home or self-care (01) ==
LOC: D.US 10-12 09:00 → D.LAB 10-12 09:00 → D.US 09:00
PROVIDERS: ATTEND Internal Medicine Gastroenterology
DX: K76.0 Fatty (change of) liver, not elsewhere classified (principal)